=== PATIENT | female | born 1995 | race Caucasian/White ===

== ENCOUNTER 2023-10-21 10:18 | Emergency (ER) | payer BC, SELFPAY ==
[2023-10-21 10:30] VITALS: BP 123/89; PULSE 95; RESP 16; TEMP 36.6; O2SAT 100
--- NOTE | 2023-10-21 10:30 | ED.URI ---
HPI - URI/Sore Throat General Chief Complaint: Upper Respiratory Infection Stated Complaint: SINUS PAIN/JAW PAIN/EARACHE Time Seen by Provider: 10/21/23 10:40 Source: patient Mode of arrival: ambulatory Limitations: no limitations History of Present Illness HPI Narrative: Cherry is a 27-year-old female patient presenting to the clinic today with complaints of left maxillary sinus pain, left-sided sore throat, left-sided jaw pain, and left ear pain. She reports the symptoms started on Thursday. Is blowing out some clear nasal drainage however is noting some blood in it. She denies any fever or chills. MD elicited complaint: sore throat, nasal congestion, sinus pain and other (Left jaw pain) Related Data Allergies Allergy/AdvReac Type Severity Reaction Status Date / Time No Known Allergies Allergy Verified 10/21/23 10:40 Review of Systems Review of Systems: Pertinent positives per HPI. Patient denies any fever, chills, rash, headache, visual changes, dizziness, cough, shortness of breath, chest pain, palpitations, nausea, vomiting, diarrhea, constipation, abdominal pain, or any urinary issues. PMFSH Comments At the time of my signature, I reviewed and agree with the nursing past medical, surgical, social, and family history. There is no relevant family history pertinent to the patient complaint. Exam Narrative: General: Well-developed, well nourished, in no apparent distress Head: Normocephalic, atraumatic Eyes: Pupils equally round and reactive to light bilaterally, EOM intact, sclera and conjunctive clear, no discharge, lids normal Ears: TMs intact and clear, ear canals clear, no drainage, grossly hearing normal. Nose: Nares patent, clear nasal discharge, mild inflammation, left maxillary sinus tenderness. Mouth: Oral pharynx without lesions or masses, good dentition, MMM. Tenderness to palpation over the left TMJ without crepitus Neck: Supple, trachea midline, no enlargement of anterior or posterior cervical nodes, no thyroid masses or goiter palpable. Cardio: Regular rate and rhythm, s1 and s2 normal, no murmur appreciated. Resp: Clear to auscultation bilaterally, no rhonchi, rales, wheezing or rubs Course Course Emergency Course: Portions of this record may have been created with voice recognition software. Level of Care: Express Care Visit Vital Signs Vital signs: Vital signs reviewed [facility] - URI/Sore Throat MDM Narrative Medical decision making narrative: At the time of visit patient is resting comfortably on the exam table. Patient appears to be nontoxic. No sign of left ear infection or dental infection. Pain to palpation over the left sinuses and over the TMJ joint. I suspect patient has left maxillary sinusitis, eustachian tube dysfunction, and supportive measures were discussed with the patient and they voiced understanding discharge instructions and agrees to treatment plan. Return precautions reviewed Differential Diagnosis Differential diagnosis: Likely upper respiratory infection, otitis media, sinusitis, viral infection, bronchitis, influenza, pharyngitis and other (COVID) Discharge Plan Discharge Clinical Impression: TMJ (temporomandibular joint syndrome) Sinusitis Qualifiers: Sinusitis location: maxillary Chronicity: acute Recurrence: non-recurrent Qualified Code(s): J01.00 - Acute maxillary sinusitis, unspecified ETD (eustachian tube dysfunction) Qualifiers: Laterality: left Qualified Code(s): H69.92 - Unspecified Eustachian tube disorder, left ear Patient Disposition: Home, Self-Care Condition: Stable Instructions: Antibiotic Form, Sinusitis (ED), Temporomandibular Disorder (ED), Earache (ED) Additional Instructions: Strep screen was negative in the clinic today. We will send strep for culture if this comes back positive we will contact him place you on antibiotics at that time. Take prescription medications only as prescribed-prednisone Increase fluids and st
== END 2023-10-21 10:50 | disposition home or self-care (01) ==
PROVIDERS: Emergency Provider Nurse Practitioner Family
DX: M26.602 Left temporomandibular joint disorder, unspecified (principal); J01.00 Acute maxillary sinusitis, unspecified; H69.92 Unspecified Eustachian tube disorder, left ear
CPT/HCPCS: 87081; 87880; 99213; G0463